=== PATIENT | male | born 1950 | race Caucasian/White ===

== ENCOUNTER → 2021-03-10 | Outpatient (CLI) | payer BC, MEDICARE ==
[~2021-03-10] MED LIST: REGADENOSON 0.4 MG/5 ML SYRINGE IV PRN
--- NOTE | 2021-03-10 12:17 | EST ---
EXERCISE STRESS AGE: 70 SEX: M HT: 6'1" WT: 260 lbs. PROTOCOL: Lexiscan STAGE: NA DURATION OF EXERCISE: NA HEART RATE REST: 85 BLOOD PRESSURE REST: 179/99 MAXIMUM HEART RATE ACHIEVED: 100 MAXIMUM BLOOD PRESSURE: 179/99 85% MPHR: 126 100% MPHR: 148 METS: NA INDICATIONS: Chest pain. CLINICAL INFORMATION: Baseline EKG shows sinus rhythm with nonspecific ST-T wave changes. The patient was given intravenous Lexiscan as per protocol. He did not have chest pain or diagnostic ST-segment depression. CONCLUSIONS: 1. Negative stress test by EKG criteria. 2. Cardiolite portion of the stress test will be reported separately. MMODL / IJN: [id number] /
--- NOTE | 2021-03-10 13:39 | NM ---
EXAMINATION TYPE: NM stress lexiscan cardiolite DATE OF EXAM: 03/10/2021 COMPARISON: NONE HISTORY: Chest pain TECHNIQUE: After the intravenous administration of 9.4 mCi Tc 99m Sestamibi - Cardiolite resting SPE CT images acquired 50 minutes post injection. The patient received 0.4mg Lexiscan, 26.6 mCi Tc 99m Sestamibi - Stress images obtained [address] injection FINDINGS: Review of stress and rest SPECT images demonstrates question of a small area of stress-induced revers ible ischemia involving the apical lateral myocardium. Gated analysis with estimated left ventricula r ejection fraction of 46 %. Report called to clinician 1:36 PM on 03/10/2021. IMPRESSION: 1. Small area of reversible uptake involving the apical lateral myocardium could be artifactual corre late clinically to exclude a small area of stress-induced reversible ischemia. 2. Ejection fraction of 46%.
== END | disposition home or self-care (01) ==
LOC: RADNMMAIN 03-02 08:16
PROVIDERS: ATTEND Family Medicine
DX: R07.9 Chest pain, unspecified (principal)
CPT/HCPCS: 93017; 78452; A9500; J2785

== ENCOUNTER 2021-04-20 05:53 | Day surgery (SDC) | payer MEDICARE ==
[~2021-04-20 05:53] MED LIST changes: +ALPRAZolam 0.25 MG TAB PO PRN; +ALPRAZolam 0.5 MG TAB PO PRN; +ASPIRIN 325 MG TAB PO STA; +ATORVASTATIN 80 MG TAB PO STA; +HEPARIN SODIUM,PORCINE 10,000 UNIT in SODIUM CHLORIDE 0.9% 1,000 ML IRRIGATION PRN; +HEPARIN SODIUM,PORCINE 2,500 UNIT in SODIUM CHLORIDE 0.9% 250 ML IRRIGATION PRN; +NITROGLYCERIN SL TABS 0.4 MG TAB SUBLINGUAL PRN; -REGADENOSON 0.4 MG/5 ML SYRINGE IV PRN; +SODIUM CHLORIDE 0.9% 1,000 ML in EMPTY BAG 1 BAG IV SCH
[2021-04-20] MEDS ORDERED: SODIUM CHLORIDE 0.9% 1,000 ML IV ONE (06:11)
[2021-04-20 06:39] LABS: Glucose,Whole Blood 148 mg/dL (75-99)
[2021-04-20 06:40] VITALS: RESP 16; TEMP 99
[2021-04-20 06:58] LABS: Basophils % (A) 0 %; Eosinophils # (A) 0.1 k/uL (0-0.7); Eosinophils % (A) 2 %; HCT 48.1 % (39.0-53.0); Lymphocytes # (A) 1.5 k/uL (1.0-4.8); Lymphocytes % (A) 16 %; MCH 31.6 pg (25.0-35.0); MCHC 33.3 g/dL (31.0-37.0); MCV 94.8 fL (80.0-100.0); Mean Platelet Volume 8.9; Monocytes # (A) 0.5 k/uL (0-1.0); Monocytes % (A) 5 %; Neutrophils % (A) 75 %; Platelet Count 188 k/uL (150-450); RBC 5.07 m/uL (4.30-5.90); RDW 13.6 % (11.5-15.5); WBC 9.4 k/uL (3.8-10.6)
[2021-04-20 07:09] LABS: Calcium 9.7 mg/dL (8.4-10.2); Potassium 4.2 mmol/L (3.5-5.1)
[2021-04-20] MEDS ORDERED: VERAPAMIL 2.5 MG/ML 2 ML AMP ONE (07:26)
[2021-04-20] MEDS ORDERED: LIDOCAINE 1% INJ 10MG/ML (20 ML MDV) ONE (07:26)
[2021-04-20] MEDS ORDERED: HEPARIN SODIUM 1,000 UN/ML (10ML VL) ONE (07:26)
[2021-04-20] MEDS ORDERED: fentaNYL (PF) 50 MCG/ML 2 ML AMP ONE (07:26)
[2021-04-20] MEDS ORDERED: fentaNYL (PF) 50 MCG/ML 2 ML AMP IVP ONE (07:57)
[2021-04-20] MEDS ORDERED: MIDAZOLAM 2 MG/2 ML VIAL IV ONE (08:00)
[2021-04-20] MEDS ORDERED: LIDOCAINE 1% INJ 10MG/ML (20 ML MDV) SQ ONE (08:01)
[2021-04-20] MEDS ORDERED: VERAPAMIL SYRINGE (5 MG/10 ML) INTRAARTER ONE (08:02)
[2021-04-20] MEDS ORDERED: HEPARIN SODIUM 1,000 UN/ML (10ML VL) IVP ONE (08:08)
[2021-04-20] MEDS ORDERED: IOPAMIDOL-370 125ML BTL INJ ONE (08:25)
[2021-04-20] MEDS ORDERED: RX INFO: IV CONTRAST WAS GIVEN 1 EACH MISC MISCELLANE PRN (08:37)
[2021-04-20] MEDS ORDERED: SODIUM CHLORIDE 0.9% 1,000 ML IV SCH (08:45)
[2021-04-20] MEDS ORDERED: TRIAMTERENE-HCTZ 37.5-25MG 1 EACH CAP PO SCH (09:00)
--- NOTE | 2021-04-20 10:12 | CC ---
CARDIAC CATHETERIZATION REPORT Mr. Chapa is a 70-year-old male with known history of hypertension, hyperlipidemia, diabetes mellitus, who has been complaining of some abdominal discomfort and chest discomfort. He subsequently underwent a myocardial perfusion imaging that revealed reversible apical lateral wall defect. In view of that, recommendation was made regarding cardiac catheterization. The procedure as well as the risks and complications were discussed with the patient who is in full understanding and agreement. PROCEDURE DETAILS: Patient was brought to director labor standards in a fasting semisedated state after receiving fentanyl and Benadryl and achieving moderate conscious sedated state. Using Xylocaine anesthesia and Seldinger technique, a 6-Estonian sheath was introduced in the right radial artery. Selective right and left coronary angiography was performed using 5-Estonian 3.5 bend right and left Lola catheter. Multiple views of the coronary arteries including hemiaxial views were obtained. The right Lola was used to cross the aortic valve. The left ventricular end-diastolic pressure was calculated. After obtaining some images of the left coronary system, there was failure of the equipment, but the images were sufficient. At the end of the procedure, catheter and sheath were removed. Hemostasis was obtained with deployment of TR band. There was no immediate complication. Patient was returned to his room in stable condition. Of note, the patient received 5000 units of intravenous heparin as well as intra-arterial verapamil. FINDINGS: FLUOROSCOPY: There was severe calcification involving the left anterior descending artery and the left main artery as well as the right coronary artery to a lesser degree. LEFT MAIN: This is a large-sized vessel bifurcating into left circumflex, left anterior descending artery, left main coronary artery has a 10-20 percent plaque proximally without any evidence of high-grade stenosis. LEFT ANTERIOR DESCENDING ARTERY: This is a large-sized vessel reaching to the apex with a wraparound apex segment heavily calcified in the proximal segment, giving rise to a moderately sized diagonal branch. The left anterior descending artery has diffuse intimal disease throughout its course without any evidence of high-grade stenosis with stenosis up to 20-30 percent throughout the vessel. LEFT CIRCUMFLEX: This is a nondominant vessel giving rise to two obtuse marginal branches. After the takeoff of the obtuse marginal branch, there is an eccentric 50 to 60% plaque. The rest of the vessel has intimal disease without any evidence of high- grade stenosis. RIGHT CORONARY ARTERY: This is a large dominant vessel bifurcating into PDA and posterolateral segment branches. The right coronary artery has mild intimal disease in the mid segment as well as in the PLV of 20% to 30% without any evidence of high-grade stenosis. LEFT VENTRICULOGRAM: Left ventriculogram was not performed. HEMODYNAMICS: There was no gradient across the aortic valve. The left ventricular end-diastolic pressure was 14-18 mmHg. CONCLUSION: 1. Heavily calcified coronary arteries. 2. Moderate disease in the mid left circumflex. 3. Mild disease in the RCA and the LAD. RECOMMENDATIONS: In view of findings and anatomy, I recommend continued medical therapy with aggressive coronary risk factor modifications that have been initiated and depending on his progress further recommendations will be made. Those findings and recommendations were discussed with the patient and his and they are in full understanding and agreement. Duration of sedation is 26 minutes. NANI / FRANKY: [id number] /
[2021-04-20 10:18] VITALS: BP 133/75
[2021-04-20 11:12] VITALS: PULSE 66
[2021-04-20] MEDS ORDERED: REPAGLINIDE 1 MG TAB PO SCH (12:00)
[2021-04-21] MEDS ORDERED: PANTOPRAZOLE 40 MG TABLET PO SCH (07:30)
[2021-04-21] MEDS ORDERED: ASPIRIN 81 MG PO SCH (09:00)
[2021-04-21] MEDS ORDERED: PRAVASTATIN SODIUM 40 MG TAB PO SCH (09:00)
[2021-04-21] MEDS ORDERED: LOSARTAN 50 MG TAB PO SCH (09:00)
[2021-04-21] MEDS ORDERED: METOPROLOL SUCCINATE (ER) 100 MG TAB.ER.24H PO SCH (09:00)
== END 2021-04-20 11:58 | disposition home or self-care (01) ==
LOC: CATHCVL 05:53
PROVIDERS: ATTEND Internal Medicine Interventional Cardiology
DX: I25.10 Atherosclerotic heart disease of native coronary artery without angina pectoris (principal); Z20.822 Contact with and (suspected) exposure to COVID-19
CPT/HCPCS: 93458; 80048; 85025; 87635; C1894; C1769; J2250; J2001; J3010; J1644; Q9967

== ENCOUNTER → 2021-05-13 | Outpatient (CLI) | payer MEDICARE ==
[2021-05-13 16:38] LABS: African American GFR (CKD) 63.2 (60.0-200.0); Anion Gap 18.7 mmol/L (4.00-12.00); BUN/Creat Ratio 11.15 Ratio (12.00-20.00); Blood Urea Nitrogen 14.5 mg/dL (9.0-27.0); Calcium 9.4 mg/dL (8.7-10.3); Carbon Dioxide 23.3 mmol/L (21.6-31.8); Non-African American GFR(CKD) 54.5 (60.0-200.0); Potassium 3.8 mmol/L (3.5-5.5)
== END | disposition home or self-care (01) ==
LOC: LABWHC1 08:45
PROVIDERS: ATTEND Nurse Practitioner Adult Health
DX: I10 Essential (primary) hypertension (principal)
CPT/HCPCS: 36415; 80048

== ENCOUNTER 2024-10-03 21:22 | Emergency (ER) | payer MEDICARE ==
--- NOTE | 2024-10-03 21:49 | ED ---
General Adult HPI - General Chief complaint: Weakness Stated complaint: Weakness Time Seen by Provider: 10/03/24 21:40 Source: patient, family, EMS, RN notes reviewed, old records reviewed Mode of arrival: EMS Limitations: no limitations, altered mental status - History of Present Illness Initial comments: 73-year-old male presenting for evaluation of confusion, weakness, fever. Patient has been sick since Monday and is presenting evening. He has had abdominal pain with nausea and vomiting patient pain points to the right upper quadrant. No reported significant cough. No dysuria. Patient has noted to have a high fever upon arrival and is mildly confused and the is able to give more detailed history. - Related Data Home Medications Medication Instructions Recorded Confirmed Aspirin [Adult Low Dose Aspirin EC] 81 mg PO DAILY 07/07/15 02/09/22 Losartan Potassium [Cozaar] 100 mg PO QAM 07/07/15 02/09/22 Metoprolol Succinate [Toprol XL] 100 mg PO QAM 07/07/15 02/09/22 metFORMIN HCL [Glucophage] 1,000 mg PO BID 07/07/15 02/09/22 Ergocalciferol [Vitamin D2 (1250 1,250 mcg PO GUAJARDO 04/16/21 02/09/22 Mcg = [id number] Iu)] Repaglinide [Prandin] 2 mg PO BID 04/16/21 02/09/22 Atorvastatin [Lipitor] 40 mg PO DAILY 02/09/22 02/09/22 Loratadine 10 mg PO DAILY 02/09/22 02/09/22 Omeprazole 20 mg PO QAM 02/09/22 02/09/22 hydrALAZINE HCL 25 mg PO BID 02/09/22 02/09/22 hydroCHLOROthiazide 25 mg PO DAILY 02/09/22 02/09/22 Allergies Allergy/AdvReac Type Severity Reaction Status Date / Time nifedipine [From Procardia] Allergy Rash/Hives Verified 10/03/24 21:29 Review of Systems ROS Statement: Those systems with pertinent positive or pertinent negative responses have been documented in the HPI. ROS Other: All systems not noted in ROS Statement are negative. Past Medical History Past Medical History: Diabetes Mellitus, GERD/Reflux, Hearing Disorder / Deafness, Hyperlipidemia, Hypertension Additional Past Medical History / Comment(s): [place], vertigo. History of Any Multi-Drug Resistant Organisms: None Reported Past Surgical History: No Surgical Hx Reported Additional Past Surgical History / Comment(s): Colonoscopy. Past Anesthesia/Blood Transfusion Reactions: No Reported Reaction Additional Past Anesthesia/Blood Transfusion Reaction / Comment(s): Has never had general anesthesia. Vertigo. Past Psychological History: No Psychological Hx Reported Smoking Status: Never smoker Past Alcohol Use History: None Reported Past Drug Use History: None Reported - Past Family History Mother Family Medical History: No Reported History General Exam Limitations: no limitations, altered mental status General appearance: in no apparent distress, lethargic Head exam: Present: atraumatic, normocephalic Eye exam: Present: normal appearance, PERRL ENT exam: Present: mucous membranes dry Neck exam: Present: normal inspection. Absent: tenderness, meningismus Respiratory exam: Absent: respiratory distress, decreased breath sounds Cardiovascular Exam: Present: normal rhythm, tachycardia GI/Abdominal exam: Present: soft, distended, tenderness (Right upper quadrant) Extremities exam: Present: normal inspection, normal capillary refill Neurological exam: Present: alert, oriented X3 (Hard of hearing and slow to respond), CN II-XII intact. Absent: motor sensory deficit Skin exam: Present: warm, dry, intact Course Vital Signs 10/03/24 10/03/24 10/03/24 21:29 22:32 23:00 Temperature 103.6 F H 102.6 F H 100.6 F H Pulse Rate 105 H 108 H 111 H Respiratory 15 16 13 Rate Blood Pressure 143/64 137/62 139/74 O2 Sat by Pulse 89 L 97 95 Oximetry 10/04/24 10/04/24 00:00 00:58 Temperature 100.8 F H 100.8 F H Pulse Rate 106 H 109 H Respiratory 15 19 Rate Blood Pressure 126/63 126/62 O2 Sat by Pulse 95 95 Oximetry Medical Decision Making - Medical Decision Making Was pt. sent in by a medical professional or institution (, PA, PHOTOGRAPHIC PLATE MAKER, urgent care, hospital, or alf...) When possible be specific @ -No Did you speak to anyone other than the patient for history (EMS, parent, family, police, friend...)? What history was obtained from this source @Patient's Did you review nursing and triage notes (agree or disagree)? Why? @ -I reviewed and agree with nursing and triage notes Were old charts reviewed (outside hosp., previous admission, EMS record, old EKG, old radiological studies, urgent care reports/EKG's, alf records)? Report findings @ -No old charts were reviewed Differential Weakness: Hypoglycemia, shock, sepsis, hyponatremia, anemia, infection, OR, ETOH, adverse medicine reaction, overdose, stroke, this is not meant to be an all-inclusive list. EKG interpreted by me (3pts min.). @ -Sinus tachycardia, 105 ventricular rate, CO interval 173, QRS duration 105, QTc 413, ST segment depression in precordial leads. X-rays interpreted by me (1pt min.). @ -X-ray is negative for focal pneumonia CT interpreted by me (1pt min.). @ -None done U/S interpreted by me (1pt. min.). @ -None done What testing was considered but not performed or refused? (CT, X-rays, U/S, labs)? Why? @ -None What meds were considered but not given or refused? Why? @ -None Did you discuss the management of the patient with other professionals (prof mckayla i.e. , PA, PHOTOGRAPHIC PLATE MAKER, lab, RT, psych nurse, high school social studies tutor, heat regulator, teacher, chief communications officer, home health care case manager)? Give summary @ Case discussed with the transfer team at [facility], Dr. Levy cox for GI has accepted transfer Was smoking cessation discussed for >3mins.? @ -No Was critical care preformed (if so, how long)? @ -Yes, 35 minutes Were there social determinants of health that impacted care today? How? (Homelessness, low income, unemployed, alcoholism, drug addiction, transport ation, low edu. Level, literacy, decrease access to med. care, residential, rehab)? @ -No Was there de-escalation of care discussed even if they declined (Discuss DNR or withdrawal of care, Hospice)? DNR status @ -No What co-morbidities impacted this encounter? (DM, HTN, Smoking, COPD, CAD, Cancer, CVA, ARF, Chemo, Hep., AIDS, mental health diagnosis, sleep apnea, morbid obesity)? @Hypertension, diabetes Was patient admitted / discharged? Hospital course, mention meds given and route, prescriptions, significant lab abnormalities, going to OR and other pertinent info. @ -73-year-old male presenting with fever, confusion, right upper quadrant pain. Patient is febrile upon arrival, IV fluids and antipyretics administered. Patient has a leukocytosis which is predominantly neutrophils. He has an elevated lactic acid at 3.8 elevated bilirubin and transaminitis. Ultrasound of the gallbladder shows gallstone without secondary signs of acute cholecystitis, the common bile duct is 0.6 cm but there is concern for distal obstruction and ascending cholangitis given this presentation. Patient started on IV antibiotics including ceftriaxone and Zosyn. He will be transferred to [facility] for GI evaluation as this institution currently has no GI coverage. Undiagnosed new problem with uncertain prognosis? @ -No Drug Therapy requiring intensive monitoring for toxicity (Heparin, Nitro, Ins ulin, Cardizem)? @ -No Were any procedures done? @ -No Diagnosis/symptom? @Fever, sepsis, concern for ascending cholangitis Acute, or Chronic, or Acute on Chronic? @ -[Acute Uncomplicated (without systemic symptoms) or Complicated (systemic symptoms)? @ -Complicated Side effects of treatment? @ -[No Exacerbation, Progression, or Severe Exacerbation? @ -No Poses a threat to life or bodily function? How? (Chest pain, USA, OR, pneumonia, PE, COPD, DKA, ARF, appy, cholecystitis, CVA, Diverticulitis, Homicidal, Suicidal, threat to staff... and all critical care pts) @ -Yes, sepsis - Lab Data Result diagrams: 10/03/24 21:58 10/03/24 21:58 Lab Results 10/03/24 10/03/24 10/03/24 Range/Units 21:58 21:58 21:58 WBC 13.2 H (3.8-10.6) k/uL RBC 4.92 (4.30-5.90) m/uL Hgb 14.9 (13.0-17.5) gm/dL Hct 45.6 (39.0-53.0) % MCV 92.5 (80.0-100.0) fL MCH 30.2 (25.0-35.0) pg MCHC 32.6 (31.0-37.0) g/dL RDW 14.2 (11.5-15.5) % Plt Count 164 (150-450) k/uL MPV 9.2 Neutrophils % 87 % Lymphocytes % 7 % Monocytes % 5 % Eosinophils % 0 % Basophils % 0 % Neutrophils # 11.5 H (1.3-7.7) k/uL Lymphocytes # 0.9 L (1.0-4.8) k/uL Monocytes # 0.6 (0-1.0) k/uL Eosinophils # 0.1 (0-0.7) k/uL Basophils # 0.0 (0-0.2) k/uL PT 14.1 H (10.0-12.5) sec INR 1.3 H (<1.2) APTT 23.1 (22.0-30.0) sec Sodium (137-145) mmol/L Potassium (3.5-5.1) mmol/L Chloride (98-107) mmol/L Carbon Dioxide (22-30) mmol/L Anion Gap mmol/L BUN (9-20) mg/dL Creatinine (0.66-1.25) mg/dL Est GFR (CKD-EPI)AfAm (>60 ml/min/1.73 sqM) Est GFR (CKD-EPI)NonAf (>60 ml/min/1.73 sqM) Glucose (74-99) mg/dL Lactic Ac Sepsis Rflx Plasma Lactic Acid Paulino (0.7-2.0) mmol/L Calcium (8.4-10.2) mg/dL Magnesium (1.6-2.3) mg/dL Total Bilirubin (0.2-1.3) mg/dL AST (17-59) U/L ALT (4-49) U/L Alkaline Phosphatase (38-126) U/L Total Protein (6.3-8.2) g/dL Albumin (3.5-5.0) g/dL Urine Color Yellow Urine Appearance Clear (Clear) Urine pH 5.0 (5.0-8.0) Ur Specific [place] 1.019 (1.001-1.035) Urine Protein Negative (Negative) Urine Glucose (UA) 4+ H (Negative) Urine Ketones Trace H (Negative) Urine Blood Negative (Negative) Urine Nitrite Negative (Negative) Urine Bilirubin Negative (Negative) Urine Urobilinogen <2.0 (<2.0) mg/dL Ur Leukocyte Esterase Negative (Negative) Influenza Type A (PCR) (Not Detectd) Influenza Type B (PCR) (Not Detectd) RSV (PCR) (Not Detectd) SARS-CoV-2 (PCR) (Not Detectd) 10/03/24 10/03/24 10/03/24 Range/Units 21:58 21:58 21:58 WBC (3.8-10.6) k/uL RBC (4.30-5.90) m/uL Hgb (13.0-17.5) gm/dL Hct (39.0-53.0) % MCV (80.0-100.0) fL MCH (25.0-35.0) pg MCHC (31.0-37.0) g/dL RDW (11.5-15.5) % Plt Count (150-450) k/uL MPV Neutrophils % % Lymphocytes % % Monocytes % % Eosinophils % % Basophils % % Neutrophils # (1.3-7.7) k/uL Lymphocytes # (1.0-4.8) k/uL Monocytes # (0-1.0) k/uL Eosinophils # (0-0.7) k/uL Basophils # (0-0.2) k/uL PT (10.0-12.5) sec INR (<1.2) APTT (22.0-30.0) sec Sodium 136 L (137-145) mmol/L Potassium 3.1 L (3.5-5.1) mmol/L Chloride 96 L (98-107) mmol/L Carbon Dioxide 26 (22-30) mmol/L Anion Gap 14 mmol/L BUN 19 (9-20) mg/dL Creatinine 1.33 H (0.66-1.25) mg/dL Est GFR (CKD-EPI)AfAm 60 (>60 ml/min/1.73 sqM) Est GFR (CKD-EPI)NonAf 52 (>60 ml/min/1.73 sqM) Glucose 190 H (74-99) mg/dL Lactic Ac Sepsis Rflx Plasma Lactic Acid Paulino 3.8 H* (0.7-2.0) mmol/L Calcium 8.4 (8.4-10.2) mg/dL Magnesium 0.9 L* (1.6-2.3) mg/dL Total Bilirubin 4.6 H (0.2-1.3) mg/dL AST 277 H (17-59) U/L ALT 148 H (4-49) U/L Alkaline Phosphatase 238 H (38-126) U/L Total Protein 6.9 (6.3-8.2) g/dL Albumin 3.9 (3.5-5.0) g/dL Urine Color Urine Appearance (Clear) Urine pH (5.0-8.0) Ur Specific [place] (1.001-1.035) Urine Protein (Negative) Urine Glucose (UA) (Negative) Urine Ketones (Negative) Urine Blood (Negative) Urine Nitrite (Negative) Urine Bilirubin (Negative) Urine Urobilinogen (<2.0) mg/dL Ur Leukocyte Esterase (Negative) Influenza Type A (PCR) Not Detected (Not Detectd) Influenza Type B (PCR) Not Detected (Not Detectd) RSV (PCR) Not Detected (Not Detectd) SARS-CoV-2 (PCR) Not Detected (Not Detectd) 10/03/24 10/04/24 10/04/24 Range/Units 22:37 00:50 01:43 WBC (3.8-10.6) k/uL RBC (4.30-5.90) m/uL Hgb (13.0-17.5) gm/dL Hct (39.0-53.0) % MCV (80.0-100.0) fL MCH (25.0-35.0) pg MCHC (31.0-37.0) g/dL RDW (11.5-15.5) % Plt Count (150-450) k/uL MPV Neutrophils % % Lymphocytes % % Monocytes % % Eosinophils % % Basophils % % Neutrophils # (1.3-7.7) k/uL Lymphocytes # (1.0-4.8) k/uL Monocytes # (0-1.0) k/uL Eosinophils # (0-0.7) k/uL Basophils # (0-0.2) k/uL PT (10.0-12.5) sec INR (<1.2) APTT (22.0-30.0) sec Sodium (137-145) mmol/L Potassium (3.5-5.1) mmol/L Chloride (98-107) mmol/L Carbon Dioxide (22-30) mmol/L Anion Gap mmol/L BUN (9-20) mg/dL Creatinine (0.66-1.25) mg/dL Est GFR (CKD-EPI)AfAm (>60 ml/min/1.73 sqM) Est GFR (CKD-EPI)NonAf (>60 ml/min/1.73 sqM) Glucose (74-99) mg/dL Lactic Ac Sepsis Rflx Y Y Plasma Lactic Acid Paulino 3.1 H* (0.7-2.0) mmol/L Calcium (8.4-10.2) mg/dL Magnesium (1.6-2.3) mg/dL Total Bilirubin (0.2-1.3) mg/dL AST (17-59) U/L ALT (4-49) U/L Alkaline Phosphatase (38-126) U/L Total Protein (6.3-8.2) g/dL Albumin (3.5-5.0) g/dL Urine Color Urine Appearance (Clear) Urine pH (5.0-8.0) Ur Specific [place] (1.001-1.035) Urine Protein (Negative) Urine Glucose (UA) (Negative) Urine Ketones (Negative) Urine Blood (Negative) Urine Nitrite (Negative) Urine Bilirubin (Negative) Urine Urobilinogen (<2.0) mg/dL Ur Leukocyte Esterase (Negative) Influenza Type A (PCR) (Not Detectd) Influenza Type B (PCR) (Not Detectd) RSV (PCR) (Not Detectd) SARS-CoV-2 (PCR) (Not Detectd) Critical Care Time Critical Care Time: Yes Total Critical Care Time: 35 Disposition Clinical Impression: Ascending cholangitis Disposition: OTHER INSTITUTION NOT DEFINED Condition: Serious Is patient prescribed a controlled substance at d/c from ED?: No Referrals: Ivania Sow DO [Primary Care Provider] - 1-2 days Time of Disposition: 23:56 - Out of Hospital Transfer - Req. Specs Out of Hospital Transfer - Requested Specifics: Other Emergency Center (Transfer to [facility])
[2024-10-03] MEDS: LACTATED RINGERS 1,000 ML IV ONE ×2 (22:00→23:06)
[2024-10-03 22:03] LABS: Appearance,Urine Clear (Clear); Bilirubin,Urine Negative (Negative); Blood,Urine Negative (Negative); Color,Urine Yellow; Glucose,Urine (UA) 4+ (Negative); Ketones,Urine Trace (Negative); Leukocyte Esterase,Urine Negative (Negative); Nitrite,Urine Negative (Negative); Protein,Urine Negative (Negative); Specific Gravity,Urine 1.019 (1.001-1.035); Urobilinogen,Urine <2.0 mg/dL (<2.0)
[2024-10-03] MEDS: ACETAMINOPHEN IV (For NPO) 1,000 MG in EMPTY BAG 1 BAG IVPB STA (22:04)
[2024-10-03 22:06] LABS: Basophils % (A) 0 %; Eosinophils # (A) 0.1 k/uL (0-0.7); Eosinophils % (A) 0 %; HCT 45.6 % (39.0-53.0); HGB 14.9 gm/dL (13.0-17.5); Lymphocytes # (A) 0.9 k/uL (1.0-4.8); Lymphocytes % (A) 7 %; MCH 30.2 pg (25.0-35.0); MCHC 32.6 g/dL (31.0-37.0); MCV 92.5 fL (80.0-100.0); Mean Platelet Volume 9.2; Monocytes # (A) 0.6 k/uL (0-1.0); Monocytes % (A) 5 %; Neutrophils # (A) 11.5 k/uL (1.3-7.7); Neutrophils % (A) 87 %; Platelet Count 164 k/uL (150-450); RBC 4.92 m/uL (4.30-5.90); RDW 14.2 % (11.5-15.5); WBC 13.2 k/uL (3.8-10.6)
[2024-10-03 22:16] LABS: INR 1.3 (<1.2); Partial Thromboplastin Time 23.1 sec (22.0-30.0); Prothrombin Time 14.1 sec (10.0-12.5)
[2024-10-03 22:17] LABS: ALT 148 U/L (4-49); AST 277 U/L (17-59); African American GFR (CKD) 60 (>60 ml/min/1.73 sqM); Albumin 3.9 g/dL (3.5-5.0); Alkaline Phosphatase 238 U/L (38-126); Anion Gap 14 mmol/L; Blood Urea Nitrogen 19 mg/dL (9-20); Calcium 8.4 mg/dL (8.4-10.2); Carbon Dioxide 26 mmol/L (22-30); Chloride 96 mmol/L (98-107); Glucose 190 mg/dL (74-99); Non-African American GFR(CKD) 52 (>60 ml/min/1.73 sqM); Potassium 3.1 mmol/L (3.5-5.1); Sodium 136 mmol/L (137-145); Total Bilirubin 4.6 mg/dL (0.2-1.3); Total Protein 6.9 g/dL (6.3-8.2)
--- NOTE | 2024-10-03 22:24 | XR ---
EXAMINATION TYPE: XR chest 2V DATE OF EXAM: 10/03/2024 10:13 PM COMPARISON: Chest radiographs from 07/07/2015 TECHNIQUE: XR chest 2V Frontal and lateral views of the chest. CLINICAL INDICATION:Male, 73 years old with history of Weakness; FINDINGS: Lungs/Pleura: There is no evidence of pleural effusion, focal consolidation, or pneumothorax. Pulmonary vascularity: Chronic pulmonary vascular congestion. Heart/mediastinum: Cardiomediastinal silhouette is enlarged and stable. Atherosclerotic calcificatio ns are seen in the aorta. Musculoskeletal: Multiple level degenerative disc disease changes seen throughout the spine. IMPRESSION: Chronic changes without acute pulmonary process. [facility], , 10/03/2024 10:21 PM
[2024-10-03 22:36] LABS: Magnesium 0.9 mg/dL (1.6-2.3)
[2024-10-03 22:41] LABS: Influenza A Not Detected (Not Detectd); Influenza B Not Detected (Not Detectd); RSV Not Detected (Not Detectd)
[2024-10-03] MEDS: MAGNESIUM SULFATE-D5W PMX 1 GM in DEXTROSE/WATER 1 100ML.BAG IVPB SCH (23:05)
--- NOTE | 2024-10-03 23:21 | US ---
EXAMINATION TYPE: US gallbladder DATE OF EXAM: 10/03/2024 COMPARISON: US 2013 CLINICAL INDICATION: Male, 73 years old with history of fever/RUQ pain; TECHNIQUE: Grayscale and color Doppler imaging of the right upper quadrant was performed. FINDINGS: EXAM MEASUREMENTS: Liver Length: 19.9 cm Gallbladder Wall: 0.3 cm CBD: 0.6 cm Right Kidney: 12.2 x 5.7 x 5.6 cm Difficult and limited study due to patient sitting upright dry heaving during exam Pancreas: obscured by overlying midline bowel gas Liver: enlarged, visualized portions appear heterogeneous Gallbladder: visualized portions appear contracted with 1.1cm echogenic focus Evidence for sonographic Bernstein's sign: no CBD: borderline dilated Right Kidney: visualized portions appear wnl The pancreas is obscured by overlying bowel gas. The liver is enlarged with heterogenous appearance. No focal lesion identified. Noncirrhotic morphology. The gallbladder is contracted with a gallstone i dentified. No surrounding fluid. Negative sonographic Bernstein's sign. The common bile duct is at the u pper limits of normal size. The visualized portions of the right kidney demonstrate no shadowing calc ulus, hydronephrosis, solid mass. IMPRESSION: 1. No ultrasound evidence for acute process. 2. Contracted gallbladder with cholelithiasis. 3. Common bile duct is at the upper limits of normal size. 4. Hepatomegaly with coarsen echotexture suggestive of nonspecific hepatocellular disease. [facility], , 10/03/2024 11:19 PM
[2024-10-03] MEDS: POTASSIUM CHLORIDE 10 MEQ in WATER FOR INJECTION 1 100ML.BAG IVPB SCH (23:26)
[2024-10-04] MEDS: PIPERACILLIN-TAZOBACTAM 3.375 GM in SODIUM CHLORIDE 0.9% 100 ML IVPB STA
[2024-10-04 00:08] VITALS: TEMP 100.8
[2024-10-04 01:01] VITALS: BP 126/62; PULSE 109; RESP 19
== END 2024-10-04 01:01 | disposition other institution (70) ==
LOC: EC 21:22
DX: A41.9 Sepsis, unspecified organism (principal); K83.09 Other cholangitis; K80.20 Calculus of gallbladder without cholecystitis without obstruction; D72.829 Elevated white blood cell count, unspecified; R74.02 Elevation of levels of lactic acid dehydrogenase [LDH]; R74.01 Elevation of levels of liver transaminase levels; R00.0 Tachycardia, unspecified; I10 Essential (primary) hypertension; E11.9 Type 2 diabetes mellitus without complications; Z79.84 Long term (current) use of oral hypoglycemic drugs; Z79.899 Other long term (current) drug therapy; Z88.8 Allergy status to other drugs, medicaments and biological substances
CPT/HCPCS: 36415 ×2; 93005; 80053; 83605 ×2; 83735; 85025; 85610; 85730; 81003; 87040; 87636; 71046; 76705; 99291; 96365; 96368; 96367; 96375 ×2; 96361; J2543; J0696; J3475 ×2; J3480; J0131